=== PATIENT | male | born 1970 | race Caucasian/White ===

== ENCOUNTER 2019-01-10 21:56 | Emergency (ER) | payer SELFPAY ==
[2019-01-11] MEDS: CIPROFLOXACIN 250 MG TAB PO (01:54)
[2019-01-11] MEDS: DIPHTH/TET/ACEL PERTUSS (ADULT) 0.5 ML VIAL IM* (01:54)
== END 2019-01-11 03:46 | disposition home or self-care (01) ==
LOC: FTE 21:56
DX: S91.332A Puncture wound without foreign body, left foot, initial encounter (principal); E11.9 Type 2 diabetes mellitus without complications; W45.0XXA Nail entering through skin, initial encounter; Y92.9 Unspecified place or not applicable; Z23 Encounter for immunization
CPT/HCPCS: 73630; 73630-LT; 90471; 90715; 99283-25

== ENCOUNTER 2019-06-15 17:23 | Emergency (ER) | payer SELFPAY | END 2019-06-15 18:49 | disposition home or self-care (01) | LOC: E/R 18:49 | DX: S40.011A Contusion of right shoulder, initial encounter (principal); S00.512A Abrasion of oral cavity, initial encounter; Y08.89XA Assault by other specified means, initial encounter | CPT/HCPCS: 99282 ==